=== PATIENT | female | born 1985 | race Caucasian/White ===

== ENCOUNTER 2022-09-26 09:29 | Emergency (ER) | payer OTHER ==
[~2022-09-26] VITALS: Ht 154.9 cm; Wt 68.0 kg
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
--- NOTE | 2022-09-26 09:57 | NUR ---
PT AMBULATED TO REST ROOM. STEADY GAIT.
[2022-09-26] MEDS ORDERED: CYCLOBENZAPRINE 10 MG TABLET PO ONE (10:00)
[2022-09-26] MEDS ORDERED: ACETAMINOPHEN ES 500 MG TABLET PO ONE (10:00)
[2022-09-26] MEDS ORDERED: CYCLOBENZAPRINE 10 MG TABLET ONE (10:03)
[2022-09-26] MEDS ORDERED: ACETAMINOPHEN ES 500 MG TABLET ONE (10:03)
--- NOTE | 2022-09-26 11:01 | NUR ---
PT RETURNED FROM [facility] VIA [facility].
[2022-09-26 12:16] VITALS: BP 121/71
--- NOTE | 2022-09-26 12:16 | NUR ---
Patient discharged to home in stable condition. Written and verbal after care instructions given. Patient verbalizes understanding of instruction.
== END 2022-09-26 12:17 | disposition home or self-care (01) ==
LOC: ER 09:37
DX: S09.90XA Unspecified injury of head, initial encounter (principal); V89.2XXA Person injured in unspecified motor-vehicle accident, traffic, initial encounter; Y93.89 Activity, other specified; Y92.89 Other specified places as the place of occurrence of the external cause; Y99.8 Other external cause status
CPT/HCPCS: 99284; 72125; 70450; 84703; L0172